=== PATIENT | female | born 1950 | race African-American/Black ===

== ENCOUNTER 2018-02-13 20:04 | Emergency (ER) | payer BC, MEDICARE ==
[2018-02-13] MEDS ORDERED: DOXYcycline CAP(*) 100 MG PO ONE (20:34)
--- NOTE | 2018-02-13 20:37 | UC ---
Koby Fiore Rebecca, scribed for Lucy Lipscomb MD on 02/13/18 at 2031 . Lower Extremity/Ankle HPI - HPI Summary HPI Summary: Pt is a 67 y/o F with a PMHx of DM presents to [facility] due to laceration on the left foot. 2 days ago while barefoot she stepped on a glass jar, causing the laceration. Immediately after, she washed it with betadine and covered it. Initially, she did not have any pain. Today, after sitting down for 4 hours, upon standing up she noticed swelling and pain. On triage, pain is mild, ranked 3/10. Sx aggravated by standing and ambulation. Pt reports that she is limping secondary to the pain and has not taken any medication for it. Denies fever, chills, numbness, tingling. Last Tetanus was 20 years ago but she had severe neck stiffness from it. Unsure if she has ever had doxycycline. - History of Current Complaint Chief Complaint: UCLowerExtremity Stated Complaint: FOOT LACERATION Hx Obtained From: Patient Hx Last Menstrual Period: POST-MENOPAUSAL Onset/Duration: Lasting Days - 2 days, Still Present Severity Currently: Mild Pain Intensity: 3 Pain Scale Used: 0-10 Numeric Aggravating Factor(s): Standing, Ambulation Alleviating Factor(s): Nothing - Allergies/Home Medications Allergies/Adverse Reactions: Allergies Allergy/AdvReac Type Severity Reaction Status Date / Time MS Penicillins [Penicillins] Allergy Severe Rash Verified 02/13/18 20:16 MS Sulfa Drugs [Sulfa Drugs] Allergy Severe Rash Verified 02/13/18 20:16 MS Cyclobenzaprine AdvReac Severe CHEST PAIN Verified 02/13/18 20:16 [From Flexeril] PMH/Surg Hx/FS Hx/Imm Hx Endocrine History: Diabetes Cardiovascular History: Hypertension - Surgical History Surgical History: Yes Surgery Procedure, Year, and Place: GASTRIC CUFF. csection - Family History Known Family History: Negative: Cardiac Disease, Hypertension, Diabetes - Social History Alcohol Use: None Substance Use Type: None Smoking Status (MU): Former Smoker - Immunization History Most Recent Tetanus Shot: 20 years ago. *bad reaction to tetanus shot Review of Systems Constitutional: Negative Skin: Other - L foot laceration and swelling Eyes: Negative ENT: Negative Respiratory: Negative Cardiovascular: Negative Gastrointestinal: Negative Genitourinary: Negative Motor: Negative Neurovascular: Negative Musculoskeletal: Negative Neurological: Negative Psychological: Negative All Other Systems Reviewed And Are Negative: Yes - Comments Additional Review of Systems Comments: NEGATIVE: Fever, chills, numbness, tingling Physical Exam Vital Signs: Initial Vital Signs Temp 98.2 F 02/13/18 20:10 Pulse 77 02/13/18 20:10 Resp 20 02/13/18 20:10 Pulse Ox 100 02/13/18 20:10 Lower Extremity Course/Dx - Course Course Of Treatment: Pt declined Tetanus and crutches. Pt medications and allergies reviewed this visit. Discharge - Sign-Out/Discharge Documenting (check all that apply): Discharge/Admit/Transfer - Discharge - Discharge Plan Condition: Stable Disposition: HOME Patient Education Materials: Acute Wound Care (ED) Referrals: Sohan Lewis MD [Primary Care Provider] - Additional Instructions: - Soak foot in Epsom salts or chlorhexidine and water for 20 minutes 2 times a day - Pat wound dry and covered with a thin layer of antibiotic ointment and bandage - Take antibiotics as prescribed until gone - Monitor your wound for signs of infection. Increased redness, drainage, odor , increased pain - elevate your wound to help with swelling and pain - Is recommended to use a cane or crutches to prevent walking directly on your - If you have any questions or concerns regarding her wound it is recommended that you return here, go to your primary doctor, or go to the emergency department for further treatment and evaluation. The documentation as recorded by the Koby hancock Rebecca accurately reflects the service I personally performed and the decisions made by me, Lucy Lipscomb MD.
== END 2018-02-13 21:23 | disposition home or self-care (01) ==
LOC: UCEAST 20:04
DX: S91.312A Laceration without foreign body, left foot, initial encounter (principal); I10 Essential (primary) hypertension; E11.9 Type 2 diabetes mellitus without complications; Z88.0 Allergy status to penicillin; Z88.2 Allergy status to sulfonamides; Z88.8 Allergy status to other drugs, medicaments and biological substances; Z87.891 Personal history of nicotine dependence; W25.XXXA Contact with sharp glass, initial encounter; Y92.9 Unspecified place or not applicable
CPT/HCPCS: 99212; A9270-GY; G0463

== ENCOUNTER 2019-08-22 11:18 | Emergency (ER) | payer BC, MEDICARE ==
--- NOTE | 2019-08-22 11:37 | ED ---
Allergic Reaction/Systemic - HPI Summary HPI Summary: This pt is a 69 Y/O F presenting to [facility] accompanied by her with a CC of swelling to her bottom lip that started last night at 2230. She states that she woke up at 0300 this morning with L jaw swelling and her upper lip. Her L side of her tongue is also swollen. She states that she took 100 mgs of Benadryl and states that the swelling continued to increase after she re-woke up at 0830 the morning and into her upper L cheek. She denies any R sided swelling. She states that she has no known aggravating or alleviating factors. She states that she has not eaten anything unordinary. She states that she takes Lisinopril for HTN and was feeling fine. Her bottom lip started swelling 2 -3 hours after eating noodles from [employer] which is included in her usual diet. She states that she has no tooth or jaw pain. She has a PMHx of HTN and DM. - History of Current Complaint Chief Complaint: EDAllergicReaction Time Seen by Provider: 08/22/19 11:27 Hx Obtained From: Patient Hx Last Menstrual Period: POST-MENOPAUSAL Onset/Duration: Sudden Onset, Started hours ago - 13, Still Present Timing: Constant Severity Currently: None Pain Intensity: 0 Pain Scale Used: 0-10 Numeric Location: Discrete @ - Bottom, upper lip, L sided tongue, L cheek Character: Swelling Aggravating Factor(s): Nothing Alleviating Factor(s): Nothing Associated Signs And Symptoms: Positive: Negative - dental pain. Negative: Chest Pain, Difficulty Breathing, Nausea, Throat Tightening - Allergies/Home Medications Allergies/Adverse Reactions: Allergies Allergy/AdvReac Type Severity Reaction Status Date / Time cyclobenzaprine Allergy Severe See Comment Verified 08/22/19 11:25 [From Flexeril] Penicillins Allergy Severe Rash Verified 08/22/19 11:25 Sulfa (Sulfonamide Allergy Severe Rash Verified 08/22/19 11:25 Antibiotics) bee venom protein (honey bee) Allergy Hives Verified 08/22/19 11:25 PMH/Surg Hx/FS Hx/Imm Hx Previously Healthy: Yes Endocrine/Hematology History: Reports: Hx Diabetes - TYPE II Denies: Hx Thyroid Disease Cardiovascular History: Reports: Hx Hypertension Respiratory History: Denies: Hx Asthma, Hx Chronic Obstructive Pulmonary Disease (COPD) GI History: Denies: Hx Ulcer - Cancer History Hx Chemotherapy: No Hx Radiation Therapy: No - Surgical History Surgical History: Yes Surgery Procedure, Year, and Place: GASTRIC CUFF. csection - Immunization History Immunizations Up to Date: Yes Infectious Disease History: No Infectious Disease History: Denies: Hx Clostridium Difficile, Hx Hepatitis, Hx Human Immunodeficiency Virus (HIV), Hx of Known/Suspected MRSA, Hx Shingles, Hx Tuberculosis, Traveled Outside the [place] in Last 30 Days - Family History Known Family History: Positive: None Negative: Cardiac Disease, Hypertension, Diabetes - Social History Occupation: Retired Lives: With Family Alcohol Use: None Hx Substance Use: No Substance Use Type: Reports: None Hx Tobacco Use: Yes Smoking Status (MU): Former Smoker Review of Systems ENT: Negative - throat tightening , Other - swelling about the upper and bottom lip, L cheek Negative: Dental Pain Negative: Chest Pain Negative: Shortness Of Breath Negative: Nausea Negative: Headache All Other Systems Reviewed And Are Negative: Yes Physical Exam - Summary Physical Exam Summary: VITAL SIGNS: Reviewed. GENERAL: Patient is a well-developed and nourished female who is lying comfortable in the stretcher. Patient is not in any acute respiratory distress. HEAD AND FACE: No signs of trauma. No ecchymosis, hematomas or skull depressions. No sinus tenderness. Little bit of swelling on the L side of the lower and bottom lip. No swelling of the tongue or throat. EYES: PERRLA, EOMI x 2, No injected conjunctiva, no nystagmus. EARS: Hearing grossly intact. Ear canals and tympanic membranes are within normal limits. MOUTH: Oropharynx within normal limits. NECK: Supple, trachea is midline, no adenopathy, no JVD, no carotid bruit, no c- spine tenderness, neck with full ROM. CHEST: Symmetric, no tenderness at palpation LUNGS: Clear to auscultation bilaterally. No wheezing or crackles. CVS: Regular rate and rhythm, S1 and S2 present, no murmurs or gallops appreciated. ABDOMEN: Soft, non-tender. No signs of distention. No rebound no guarding, and no masses palpated. Bowel sounds are normal. EXTREMITIES: FROM in all major joints, no edema, no cyanosis or clubbing. NEURO: Alert and oriented x 3. No acute neurological deficits. Speech is normal and follows commands. SKIN: Dry and warm Triage Information Reviewed: Yes Vital Signs On Initial Exam: Initial Vitals Temp Pulse Resp BP Pulse Ox 97.8 F 81 18 184/90 99 08/22/19 11:20 08/22/19 11:20 08/22/19 11:20 08/22/19 11:20 08/22/19 11:20 Vital Signs Reviewed: Yes Procedures - Sedation Patient Received Moderate/Deep Sedation with Procedure: No Diagnostics - Vital Signs Vital Signs Temp Pulse Resp BP Pulse Ox 08/22/19 11:20 97.8 F 81 18 184/90 99 - Laboratory Result Diagrams: 08/22/19 12:08 08/22/19 12:08 Lab Statement: Any lab studies that have been ordered have been reviewed, and results considered in the medical decision making process. Re-Evaluation - Re-Evaluation First Eval Re-Evaluation Time: 12:20 Change: Unchanged Comment: Pt stated that she has been around suspected MRSA casses and requested a MRSA test. Second Eval Re-Evaluation Time: 13:30 Change: Improved Comment: Pt states that the swelling has decreased. Her BP is still high, but she requested on discussing the case furter with her PCP. Allergic Reaction Course/Dx - Course Assessment/Plan: This pt is a 69 Y/O F presenting to [facility] accompanied by her with a CC of swelling to her bottom lip that started last night at 2230. She states that she woke up at 0300 this morning with L jaw swelling and her upper lip. Her L side of her tongue is also swollen. She states that she took 100 mgs of Benadryl and states that the swelling continued to increase after she re-woke up at 0830 the morning and into her upper L cheek. She denies any R sided swelling. She states that she has no known aggravating or alleviating factors. She states that she has not eaten anything unordinary. She states that she takes Lisinopril for HTN and was feeling fine. Her bottom lip started swelling 2-3 hours after eating noodles from [employer] which is included in her usual diet. She states that she has no tooth or jaw pain. She has a PMHx of HTN and DM. Blood test results without any significant abnormality except for glucose of 208, CRP is a 8.21. In the ED course the patient has angioedema. Patient does not have any airway compromise, no swelling of the tongue or shortness of breath. The patient was given Solu-Medrol, Pepcid and she already took Benadryl. Patient was observed for a couple hours in the ED and the symptoms improved. The patient was recommended to stop taking lisinopril. She was given hydrochlorothiazide to control her blood pressure. However, she declined any medications in the ED. Patient is feeling better and she is hemodynamically stable. - Diagnoses Provider Diagnoses: Uncontrolled hypertension, Angioedema Discharge ED - Sign-Out/Discharge Documenting (check all that apply): Patient Departure - discharge - Discharge Plan Condition: Stable Disposition: HOME Prescriptions: Hydrochlorothiazide TAB* [Hydrodiuril TAB*] 25 mg PO DAILY #15 tab predniSONE 10 mg TAB [Deltasone 10 MG TAB*] 10 mg PO DAILY #4 tab Patient Education Materials: Chronic Hypertension (ED), Angioedema (ED) Referrals: Yeison Martell MD [Primary Care Provider] - 2 Days Additional Instructions: PLEASE RETURN TO THE ED IMMEDIATELY FOR WORSENING OR CONCERNING SYMPTOMS AND FOLLOW UP WITH YOUR PRIMARY CARE PHYSICIAN IN 1-3 DAYS. - Billing Disposition and Condition Condition: STABLE Disposition: Home - Attestation Statements Document Initiated by Scribe: Yes Documenting Scribe: Kev Major Provider For Whom Kylie is Documenting (Include Credential): Joe Matamoros MD Scribe Attestation: Kev Fiore, scribed for Joe Matamoros MD on 08/22/19 at 1808. Scribe Documentation Reviewed: Yes Provider Attestation: The documentation as recorded by the Kev hancock accurately reflects the service I personally performed and the decisions made by ks, Joe Matamoros MD Status of Scribe Document: Viewed
[2019-08-22] MEDS ORDERED: Famotidine TAB* 20 MG PO ONE (11:47)
[2019-08-22 12:18] LABS: ABS Monocytes 0.4 10^3/ul (0-0.8); ABS Neutrophils 2.2 10^3/ul (1.5-7.7); Hematocrit 36 % (35-47); Hemoglobin 12.1 g/dL (12.0-16.0); Mean Corpuscular HGB Conc 33 g/dL (31-36); Mean Corpuscular Hemoglobin 30 pg (27-31); Mean Corpuscular Volume 90 fL (80-97); Mean Platelet Volume 8.7 fL (7.4-10.4); Platelet Count 279 10^3/uL (150-450); Red Blood Count 4.06 10^6 /uL (3.70-4.87); Red Cell Distribution Width 15 % (10-15); White Blood Count 3.7 10^3/uL (3.5-10.8)
[2019-08-22 12:34] LABS: Albumin 3.8 g/dL (3.2-5.2); Albumin/Globulin Ratio 1.2 (1-3); BUN/Creatinine Ratio 23.5 (8-20); C Reactive Protein 8.21 mg/L (<8.01); Calcium 9.2 mg/dL (8.6-10.3); EGFR African American 84.8 (>60); EGFR Non-African American 70.1 (>60); Globulin 3.2 g/dL (2-4); Potassium 4.5 mmol/L (3.5-5.0); Total Bilirubin 0.5 mg/dL (0.2-1.0)
[2019-08-22] MEDS ORDERED: methylPREDNISolone 125 MG* 2 ML VIAL IV ONE ×2 (12:40→12:44)
[2019-08-22 13:45] VITALS: BP 182/107
== END 2019-08-22 13:44 | disposition home or self-care (01) ==
LOC: ED 11:18
DX: T78.3XXA Angioneurotic edema, initial encounter (principal); I10 Essential (primary) hypertension; E11.9 Type 2 diabetes mellitus without complications; Z87.891 Personal history of nicotine dependence; Z79.899 Other long term (current) drug therapy; Z88.0 Allergy status to penicillin; Z88.2 Allergy status to sulfonamides; Z88.8 Allergy status to other drugs, medicaments and biological substances
CPT/HCPCS: 36415; 80053; 85025; 86140; 87641; 96374; 99283; A9270-GY; J2930